=== PATIENT | female | born 1970 | race Caucasian/White ===

== ENCOUNTER 2017-06-26 05:11 | Emergency (ER) | payer OTHER ==
[2017-06-26] MEDS: HYDROmorphONE 0.5 MG/0.5 ML SYG IM (06:45)
== END 2017-06-26 07:58 | disposition home or self-care (01) ==
LOC: FTE 05:11
DX: G50.0 Trigeminal neuralgia (principal); F17.210 Nicotine dependence, cigarettes, uncomplicated
CPT/HCPCS: 96372; 99284-25

== ENCOUNTER 2017-07-28 17:15 | Emergency (ER) | payer OTHER ==
[2017-07-28] MEDS: SODIUM CHLORIDE 0.9% 1L IRRIG IRR (19:31)
[2017-07-28] MEDS: FLUORESCEIN STRIP RIGHT EYE (19:31)
[2017-07-28] MEDS: IBUPROFEN 600 MG TAB PO (19:31)
[2017-07-28] MEDS: TETRACAINE 0.5% 4 ML OPH RIGHT EYE (19:31)
[2017-07-28] MEDS: KETOROLAC 30 MG INJ IM (19:36)
[2017-07-28] MEDS: HYDROCODONE/APAP (5/325) TAB PO (20:02)
== END 2017-07-28 20:08 | disposition home or self-care (01) ==
LOC: FTE 17:15
DX: S60.512A Abrasion of left hand, initial encounter (principal); S60.511A Abrasion of right hand, initial encounter; W25.XXXA Contact with sharp glass, initial encounter; Y92.9 Unspecified place or not applicable
CPT/HCPCS: 96372; 99284-25

== ENCOUNTER 2017-09-10 13:15 | Emergency (ER) | payer OTHER ==
[2017-09-10] MEDS: morphine LIQ (10 MG/5 ML) CUP PO (14:33)
== END 2017-09-10 15:00 | disposition home or self-care (01) ==
LOC: FTE 13:15
DX: M54.2 Cervicalgia (principal)
CPT/HCPCS: 99283; Z7502

== ENCOUNTER 2018-08-11 09:59 | Day surgery (SDC) | payer OTHER ==
[2018-08-11] MEDS ORDERED: PROPOFOL 20 ML (11:59)
== END 2018-08-11 12:45 | disposition home or self-care (01) ==
LOC: GIL 09:59
DX: Z12.11 Encounter for screening for malignant neoplasm of colon (principal); D12.8 Benign neoplasm of rectum
CPT/HCPCS: 45380; 88305